=== PATIENT | male | born 1970 | race Caucasian/White ===

== ENCOUNTER → 2016-09-18 | Day surgery (SDC) | payer OTHER ==
[~2016-09-18] VITALS: Ht 182.9 cm; Wt 73.7 kg
[~2016-09-18] MED LIST: ACETAMINOPHEN 1000 MG/100 ML VIAL IV ONE; ASPI1TAB69 PO; ASPI81TA11 PO; BUPIVACAINE HCL PF 0.5% 30 ML VIAL ONE; CLAR10CA3 PO; FAMOTIDINE 20 MG/2 ML VIAL ONE; HYDROmorphone HCL PF 1 MG/ML VIAL ONE; INSULIN HUMAN REGULAR 1,000 UNITS/10 ML VIAL SQ PRN; LACTATED RINGER'S 1000 ML IV SCH; METOPROLOL TARTRATE 25 MG TAB PO PRN; MIDAZOLAM HCL 2 MG/2 ML VIAL ONE; MORPHINE SULFATE 4 MG/ML INJ IV PRN; MORPHINE SULFATE 4 MG/ML INJ ONE; ONDANSETRON HCL 4 MG/2 ML VIAL IV PUSH ONE; ONDANSETRON HCL 4 MG/2 ML VIAL IV PUSH PRN; PROPOFOL 200 MG/20 ML AMP IV ONE; SODIUM CHLORID 0.9% 500 ML IV SCH; ceFAZolin 1,000 MG/NS 100 ML IV SCH; fentaNYL CITRATE 250 MCG/5 ML AMP ONE; traMADol HCL 50 MG TAB PO PRN
[2016-09-18 10:06] VITALS: BP 127/76; PULSE 80; RESP 18; TEMP 98.6; O2SAT 97
[2016-09-18 10:31] LABS: AUTOMATED NEUTROPHIL # 4.2 TH/MM3 (1.8-7.7); BASOPHIL % 0.6 % (0.0-2.0); EOSINOPHIL # 0.1 TH/MM3 (0-0.4); EOSINOPHIL % 0.9 % (0.0-4.0); HEMATOCRIT 42.2 % (39.0-51.0); HEMO FLAGS DIFF FINAL; LYMPH % 31.8 % (9.0-44.0); LYMPHOCYTE # 2.3 TH/MM3 (1.0-4.8); MEAN CELL VOLUME 92.9 FL (80.0-100.0); MEAN CORPUSCULAR HEMOGLOBIN 31.4 PG (27.0-34.0); MEAN CORPUSCULAR HGB CONC 33.8 % (32.0-36.0); MONO % 9.6 % (0.0-8.0); NEUT % 57.1 % (16.0-70.0); PLATELET COUNT 445 TH/MM3 (150-450); RED BLOOD COUNT 4.54 MIL/MM3 (4.50-5.90); RED CELL DISTRIBUTION WIDTH 13.6 % (11.6-17.2); WHITE BLOOD COUNT 7.4 TH/MM3 (4.0-11.0)
[2016-09-18 10:45] LABS: APTT (PATIENT) 26.1 SEC (24.3-30.1); PROTHROMBIN TIME - PATIENT 10.5 SEC (9.8-11.6)
[2016-09-18 10:57] LABS: ANION GAP 7 MEQ/L (5-15); AST (GOT) 14 U/L (15-37); BICARBONATE 25.3 MEQ/L (21.0-32.0); BLOOD UREA NITROGEN 12 MG/DL (7-18); CHLORIDE 106 MEQ/L (98-107); GLOMERULAR FILTRATION RATE 95 ML/MIN (>89); POTASSIUM 4.1 MEQ/L (3.5-5.1); SODIUM (NA) 138 MEQ/L (136-145)
[2016-09-18 11:00] LABS: ALKALINE PHOSPHATASE 86 U/L (45-117); ALT (GPT) 35 U/L (12-78); TOTAL BILIRUBIN ADULT 0.2 MG/DL (0.2-1.0)
--- NOTE | 2016-09-18 14:07 | PD.OP ---
Operative Report Date of Surgery: Sep 18, 2016 Preoperative Diagnosis: Left testicular mass Postoperative Diagnosis: Same Procedure: Left radical orchiectomy Anesthesia: Gen. endotracheal tube Surgeon: Hipolito Moran Associate Embalmer/Funeral Director(s): Jose Alejandro Resident Surgeon: None Operation and Findings: Hard palpable testicular mass noted involving left testicle 46-year-old male presented to the office yesterday with findings on ultrasound demonstrating a 1 cm mass involving left testicle. Malignancy was suspected on ultrasound and decision made to bring the patient to the operating room to undergo left radical orchiectomy. Chest x-ray and prior tumor markers (AFP/LDH/ BetaHCG) were all within normal limits. Risk and benefits were discussed and the patient was willing to proceed. Patient brought to operating identified myself as Ben Elizabeth. He was placed in the supine position on the operating table, prepped and draped in usual sterile fashion, received preprocedure antibiotics, and general endotracheal tube anesthesia was administered. Half percent Marcaine was injected into the area of the inguinal canal. Using a 15 blade, the skin was incised extending from the pubic tubercle in the direction of the anterior superior iliac spine of the hip. Katrina's and Camper's fascia were identified. The overlying fat was then swept cephalad and the external oblique aponeurosis was identified. Small incision was made at this level. Using the Metzenbaum scissors the ilioinguinal nerve was swept away from the incision line, and the incision was extended down to the external ring. The cord was then identified and a Patrice was used to elevate the cord. Quarter- inch Maria R drain was then wrapped around the cord, the cord was elevated. The underlying attachments were then freed up using the Bovie cautery. The testicle then was elevated from the scrotum and brought out through the incision. The testicle was then freed up from its gubernacular attachments. Hemostasis was obtained and the scrotum was irrigated. No evidence any bleeding was identified. Zofia Clamps were then placed above the maria r drain wrapped around the cord and the cord was divided at its more proximal aspect. 0 silk sutures were used to suture ligate the cord. The suture was then cut long for identification purposes later if necessary. The external oblique aponeurosis was then closed with a running 2-0 Vicryl suture. Katrina's and Camper's fascia were then closed with interrupted 2-0 Vicryl. A running 4-0 Monocryl was then used to close the skin. He tolerated the procedure well and was extubated and transferred to stable condition. Hipolito Moran DO Sep 18, 2016 14:07
[2016-09-18 15:20] VITALS: BP 123/76; PULSE 81; RESP 20; TEMP 98; O2SAT 99
== END | disposition home or self-care (01) ==
LOC: HSDC 09:45
PROVIDERS: ATTEND Urology
DX: N50.0 Atrophy of testis (principal); E78.5 Hyperlipidemia, unspecified
CPT/HCPCS: 00926; 54530; 80053; 85025; 85610; 85730; 88307; J0131; J0690; J1170; J2250; J2405; J3010; J7120; 88304; 88309; J2270